=== PATIENT | female | born 1950 | race Caucasian/White ===

== ENCOUNTER 2021-06-22 09:31 | Inpatient (IN) ==
[2021-06-22] MEDS ORDERED: 0.9 % SODIUM CHLORIDE 1,000 ML IV ONE ×2 (10:23→13:33)
--- NOTE | 2021-06-22 10:27 | Emergency Department Note ---
URI/Sore Throat HPI General Chief Complaint: Cold/Flu Symptoms Stated Complaint: confusion & SOB Time Seen by Provider: 06/22/21 09:50 Source: patient, family (Family friend at bedside) and old records reviewed Mode of arrival: ambulatory Limitations: no limitations History of Present Illness HPI Narrative: Narrative: 71-year-old female who was seen by by me 911 for Covid pneumonia anemia acute renal insufficiency acute hyponatremia elevated troponin and dehydration. Patient was scheduled to be admitted but when she met with hospitalist declined admission. Left AMA. Patient complains of and continued shortness of breath fevers and chills confusion and generalized weakness. She felt better for a day after receiving IV fluids and has continued to get worse after that. Poor p.o. intake sleeping per friend at bedside. MD Complaint: fever, cough and rhinorrhea Onset (ago): day(s) Duration: constant Severity: moderate Improves with: rest Worsens with: exertion Description of mucous: clear Able to tolerate fluids by mouth: Yes Context: sick contacts, recent travel and multiple patients with similar complaints Associated symptoms: Reports fever, chills, myalgias, diaphoresis, rhinorrhea, nasal congestion, sore throat, cough, shortness of breath and nausea; Denies voice changes, headache, stiff neck, chest pain, abdominal pain, vomiting, diarrhea, dysuria, rash, epistaxis and ear pain Treatments prior to arrival: acetaminophen Related Data Home Medications Medication Instructions Recorded Confirmed allopurinol 300 mg PO BID 06/19/21 06/19/21 aripiprazole 2 mg PO QDAY 06/19/21 06/19/21 aspirin [Aspir-81] 81 PO DAILY 06/19/21 carvedilol 25 mg PO BID 06/19/21 06/19/21 diphenhydramine HCl [Allergy 25 mg PO Q6H PRN 06/19/21 06/19/21 (diphenhydramine)] duloxetine 120 mg PO QDAY 06/19/21 06/19/21 eszopiclone 1 mg PO QHS 06/19/21 06/19/21 famotidine [Pepcid AC] 20 mg PO QDAY 06/19/21 06/19/21 fluticasone furoate-vilanterol 1 inh INHALATION Q24H 06/19/21 06/19/21 [Breo Ellipta] furosemide 20 mg PO QAM 06/19/21 06/19/21 insulin lispro [Humalog Pen] SUBCUT 06/19/21 levothyroxine 100 mcg PO QDAY 06/19/21 06/19/21 quetiapine 400 mg PO QDAY 06/19/21 06/19/21 rosuvastatin 20 mg PO QDAY 06/19/21 06/19/21 Allergies Allergy/AdvReac Type Severity Reaction Status Date / Time No Known Drug Allergies Allergy Unverified 06/19/21 09:49 Review of Systems ROS ROS Narrative: Narrative: All systems ED: reviewed and negative except as stated. [facility] Narrative Patient History Narrative: Narrative: Medical/Surgical/Family History All Active Problems (Updated 06/22/21 @ 13:36 by Bennie Dahl MD) COVID-19 (Acute) Anemia (Acute) Acute renal insufficiency (Acute) Acute hyponatremia (Acute) Elevated troponin (Acute) Dehydration (Acute) 2019 novel coronavirus-infected pneumonia (NCIP) (Acute) Social History Smoking Status: Unknown if ever smoked Exam Narrative Narrative: Narrative: General Limitations: no limitations General appearance: Present alert and in no apparent distress Head Head: Present atraumatic and normocephalic Eye Eye: Present normal appearance, PERRL and EOMI ENT ENT: Present normal exam and mucous membranes dry Neck Neck: Present normal inspection and full ROM Chest Chest: Present normal inspection; Absent tenderness Respiratory Respiratory: Present wheezes and decreased breath sounds; Absent respiratory distress Cardiovascular Cardiovascular: Present regular rate, normal rhythm and systolic murmur Adbominal Abdominal: Present soft; Absent distention, tenderness, guarding and rebound Extremities Extremities: Present normal inspection and full ROM; Absent tenderness, pedal edema and pretibial edema Back Back: Present normal inspection; Absent CVA tenderness (R) and CVA tenderness (L) Neurological Neurological: Present alert and oriented X3 Psychiatric Psychiatric: Present normal affect and normal mood Skin Skin: Present warm (WNL); Absent rash Course Vital Signs Vital signs: Vital Signs Temperature 99.0 F 06/22/21 09:33 Pulse Rate 69 06/22/21 09:33 Respiratory Rate 24 H 06/22/21 09:33 Blood Pressure 144/59 06/22/21 09:33 Pulse Oximetry (%) 91 06/22/21 09:33 Temperature 99.0 F 06/22/21 09:33 Pulse Rate 69 06/22/21 12:52 Respiratory Rate 27 H 06/22/21 12:52 Blood Pressure 135/99 06/22/21 12:46 Pulse Oximetry (%) 90 06/22/21 12:52 MDM MDM Narrative Medical decision making narrative: Narrative: Patient with Covid pneumonia who left AMA on the returns with increasing shortness of breath. Patient remains hypoxic on room air at 87% O2 saturation sodium is 130 and this is improved creatinine is 2.3 which is also improved from a 911 labs. Patient will require admission for oxygen and IV fluids. Differential Diagnosis Differential Diagnosis: Covid, pneumonia bacterial viral, COPD, CHF. Medical Records Medical records reviewed: Yes I reviewed the patient's medical records. Lab Data Lab results reviewed: Yes I reviewed the patient's lab results. Result diagrams: 06/22/21 10:55 06/22/21 10:55 Labs: Lab Results 06/22/21 06/22/21 06/22/21 Range/Units 10:55 10:55 10:55 WBC 11.2 H (4.5-11.0) K/mcL RBC 2.85 L (3.59-5.38) M/mcL Hgb 9.5 L (11.2-15.7) g/dL Hct 28.8 L (34.1-44.9) % MCV 101.1 H (80.0-100.0) fL MCH 33.3 (26.0-34.0) pg MCHC 33.0 (31.0-36.0) g/dL RDW 13.8 (11.5-14.5) % Plt Count 146 (140-440) K/mcL MPV 11.4 H (7.4-10.4) fL Neut % (Auto) 81.9 H (38.0-78.0) % Lymph % (Auto) 11.0 L (15.5-49.0) % [place] % (Auto) 6.9 (1.0-12.0) % Eos % (Auto) 0.1 (0.0-7.0) % Baso % (Auto) 0.1 (0.0-2.0) % Lymph # (Auto) 1.24 L (1.50-4.80) K/mcL [place] # (Auto) 0.78 (0.10-0.90) K/mcL Eos # (Auto) 0.01 (0.00-0.70) K/mcL Baso # (Auto) 0.01 (0.00-0.30) K/mcL Absolute Neutrophils 9.20 H (1.80-8.00) K/mcL VBG Lactic Acid < 0.2 L (0.5-2.0) mmol/L Sodium 130 L (133-145) mmol/L Potassium 3.6 (3.3-5.1) mmol/L Chloride 90 L (96-108) mmol/L Carbon Dioxide 20 L (22-30) mmol/L Anion Gap 20.0 H (8.0-16.0) BUN 69 H (8-23) mg/dL Creatinine 2.3 H (0.6-1.1) mg/dL GFR Calculation 20 Glucose 343 H (70-105) mg/dL Calcium 8.4 L (8.6-10.4) mg/dL Total Bilirubin 0.7 (0.1-1.0) mg/dL AST 28 (<32) U/L ALT 15 (<40) U/L Alkaline Phosphatase 135 H (39-117) U/L Troponin T (<0.03) ng/mL Total Protein 6.7 (5.9-8.4) gm/dL Albumin 3.2 (3.2-5.2) gm/dL Globulin 3.5 (2.2-3.7) gm/dL Albumin/Globulin Ratio 0.9 L (1.0-2.3) 06/22/21 Range/Units 10:55 WBC (4.5-11.0) K/mcL RBC (3.59-5.38) M/mcL Hgb (11.2-15.7) g/dL Hct (34.1-44.9) % MCV (80.0-100.0) fL MCH (26.0-34.0) pg MCHC (31.0-36.0) g/dL RDW (11.5-14.5) % Plt Count (140-440) K/mcL MPV (7.4-10.4) fL Neut % (Auto) (38.0-78.0) % Lymph % (Auto) (15.5-49.0) % [place] % (Auto) (1.0-12.0) % Eos % (Auto) (0.0-7.0) % Baso % (Auto) (0.0-2.0) % Lymph # (Auto) (1.50-4.80) K/mcL [place] # (Auto) (0.10-0.90) K/mcL Eos # (Auto) (0.00-0.70) K/mcL Baso # (Auto) (0.00-0.30) K/mcL Absolute Neutrophils (1.80-8.00) K/mcL VBG Lactic Acid (0.5-2.0) mmol/L Sodium (133-145) mmol/L Potassium (3.3-5.1) mmol/L Chloride (96-108) mmol/L Carbon Dioxide (22-30) mmol/L Anion Gap (8.0-16.0) BUN (8-23) mg/dL Creatinine (0.6-1.1) mg/dL GFR Calculation Glucose (70-105) mg/dL Calcium (8.6-10.4) mg/dL Total Bilirubin (0.1-1.0) mg/dL AST (<32) U/L ALT (<40) U/L Alkaline Phosphatase (39-117) U/L Troponin T 0.02 (<0.03) ng/mL Total Protein (5.9-8.4) gm/dL Albumin (3.2-5.2) gm/dL Globulin (2.2-3.7) gm/dL Albumin/Globulin Ratio (1.0-2.3) Radiology Data Radiology results reviewed: Yes I reviewed the patient's radiology results. 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 Dahl was called with the report Interpreted and Authenticated by: Gee Tellez 06/22/21 EKG Data EKG #1: EKG attestation: Yes I reviewed and interpreted this EKG. and Yes There are no EKG findings of acute coronary syndrome EKG shows normal: sinus rhythm Rate: normal (69) Rhythm: NSR [place]/QRS: LBBB When compared to previous EKG there are: no significant changes (06/19) Pulse Oximetry Data Pulse Ox %: 87 Interpretation: 87% on room air hypoxic for this patient Discharge Plan Patient/Caregiver Discharge Instructions Pt seen by [facility] GRINDER/PA only: No Clinical Impression: 2019 novel coronavirus-infected pneumonia (NCIP), Anemia, Acute renal insufficiency, Acute hyponatremia Patient Disposition: Xfer As Inpt ([facility]) Follow up with: Unknown,Unknown [Primary Care Provider] - Prescriptions: No Action carvedilol 25 mg Tablet 25 mg PO BID RF: 0 aspirin [Aspir-81] 81 mg Tablet,Delayed Release (Dr/Ec) 81 PO DAILY RF: 0 famotidine [Pepcid AC] 20 mg Tablet 20 mg PO QDAY RF: 0 diphenhydramine HCl [Allergy (diphenhydramine)] 25 mg Capsule 25 mg PO Q6H PRN (Reason: Allergy Symptoms) RF: 0 allopurinol 300 mg Tablet 300 mg PO BID RF: 0 furosemide 20 mg Tablet 20 mg PO QAM RF: 0 insulin lispro [Humalog Pen] 100 unit/mL Insulin Pen SUBCUT RF: 0 rosuvastatin 20 mg Tablet 20 mg PO QDAY RF: 0 duloxetine 60 mg Capsule,Delayed Release(Dr/Ec) 120 mg PO QDAY RF: 0 eszopiclone 1 mg Tablet 1 mg PO QHS RF: 0 aripiprazole 2 mg Tablet 2 mg PO QDAY RF: 0 quetiapine 400 mg Tablet Extended Release 24 Hr 400 mg PO QDAY RF: 0 levothyroxine 100 mcg Capsule 100 mcg PO QDAY RF: 0 Breo Ellipta 100-25 mcg/dose Blister With Device 1 inh INHALATION Q24H RF: 0
--- NOTE | 2021-06-22 10:47 | XRay Report ---
HISTORY: Fever for breast and confusion FINDINGS: There is a mild alveolar infiltrate in the central portion right lung. There is a large pacemaker in the left anterior chest wall obscuring a portion of the left lung. No infiltrate is seen on the left. The heart is mildly enlarged. The pulmonary vessels, best seen in left upper lobe appear normal. No pleural effusion is present. Moderate arthritis is present in the right shoulder. IMPRESSION: Mild pneumonia in the right lung Cardiomegaly Interpreted and Authenticated by: Gee Tellez 06/22/21
--- NOTE | 2021-06-22 10:53 | Cat Scan Report ---
History: Fever with confusion TECHNIQUE: The brain was imaged without contrast in axial plane at 2.5 mm intervals. The radiation exposure was limited using dose reduction technology. FINDINGS: There is mild generalized atrophy. There is no evidence of an acute infarct, hemorrhage, edema or mass effect. There is a 4 mm old white matter infarct lateral to the inferior aspect of the frontal horn of the left lateral ventricle. No abnormal extra-axial fluid collection is present. Patient has mild to moderate bilateral ethmoid sinusitis and mild bilateral frontal sinusitis. There is also inflammation in the right lateral recess of the sphenoid sinus. The mastoids are normally aerated. 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 Dahl was called with the report Interpreted and Authenticated by: Gee Tellez 06/22/21
[2021-06-22 12:33] LABS: Basophils # (Auto) 0.01 K/mcL (0.00-0.30); Basophils % (Auto) 0.1 % (0.0-2.0); Eosinophils # (Auto) 0.01 K/mcL (0.00-0.70); Eosinophils % (Auto) 0.1 % (0.0-7.0); Hematocrit 28.8 % (34.1-44.9); Hemoglobin 9.5 g/dL (11.2-15.7); Lymphocytes # (Auto) 1.24 K/mcL (1.50-4.80); Mean Cell Volume 101.1 fL (80.0-100.0); Mean Platelet Volume 11.4 fL (7.4-10.4); Monocytes # (Auto) 0.78 K/mcL (0.10-0.90); Monocytes % (Auto) 6.9 % (1.0-12.0); Neutrophils % (Auto) 81.9 % (38.0-78.0); Platelet Count 146 K/mcL (140-440); RBC 2.85 M/mcL (3.59-5.38); Red Cell Distribution Width 13.8 % (11.5-14.5); WBC 11.2 K/mcL (4.5-11.0)
--- NOTE | 2021-06-22 12:56 | EKG ---
[facility] Test Date: 2021-06-22 Pat Name: Corin Ocampo Department: ED Room: Gender: Female [employer]atch [employer]isher: : [id number] Requested By: Bennie Dahl Order Number: [id number] Reading MD: Nadeem Butler Measurements Intervals [place] Rate: 69 P: 7 DC: 179 QRS: -45 QRSD: 155 T: 103 QT: 480 QTc: 515 Interpretive Statements Sinus rhythm Left bundle branch block Unchanged from prior Electronically Signed On 06-22-2021 12:56:11 PDT by Nadeem Butler /store/M0/[id number]
[2021-06-22 13:15] LABS: ALT/SGPT 15 U/L (<40); AST/SGOT 28 U/L (<32); Albumin 3.2 gm/dL (3.2-5.2); Albumin/Globulin Ratio 0.9 (1.0-2.3); Alkaline Phosphatase 135 U/L (39-117); Bilirubin,Total 0.7 mg/dL (0.1-1.0); Blood Urea Nitrogen 69 mg/dL (8-23); Calcium 8.4 mg/dL (8.6-10.4); Carbon Dioxide 20 mmol/L (22-30); Chloride 90 mmol/L (96-108); Globulin 3.5 gm/dL (2.2-3.7); Glomerular Filtration Rate 20; Glucose 343 mg/dL (70-105)
[2021-06-22 15:20] LABS: Appearance,Urine HAZY (Clear); Bacteria,Urine MOD /hpf (0); Bilirubin,Urine Negative (Negative); Color,Urine YELLOW; Culture Indicated,Urine yes; Glucose,Urine (UA) >=500 mg/dL (Negative); Ketones,Urine Negative (Negative); Leukocyte Esterase,Urine 250 /ug (Negative); Nitrate,Urine Negative (Negative); Protein,Urine 30 mg/dL (Negative); Specific Gravity,Urine 1.008 (1.000-1.035); Urine Blood 0.03 mg/dL (Negative); Urine RBC 2 /hpf (0-3); Urine Squamous Epithelial Cell 1 /hpf (0-4); Urine WBC 43 /hpf (0-4); Urobilinogen,Urine Negative
--- NOTE | 2021-06-22 17:31 | Internal Med History&Physical ---
HPI History of Present Illness Patient information: Note initiated : 06/22/21 at 5:17 pm Service Date, if different from initiated Date: [] Patient: Corin Ocampo 71 y/o F admitted on for Confusion & SOB. Chief Complaint: [] History of present illness: Ms. Ocampo is a 71 year old female with a history of hypertension, type 2 diabetes mellitus, coronary artery disease, COPD, congestive heart failure, hypothyroidism, gout, depression, status post ICD, recently diagnosed with COVID-19 on 06/19/2021 who presented to the ED for confusion. The patient is from [place], currently visiting her sister. The patient arrived in [place] on 06/04/2021, her sister had COVID-19 at that time. The patient's sister's also got COVID-19. On about 06/09/2021 the patient developed a sore throat and dry cough. On 06/19/2021 the patient present ed to the ED where she was recommended for hospital admission. The patient left AGAINST MEDICAL ADVICE. Additionally the patient was found to have hyponatremia and elevated creatinine at that time. The patient returned to the ED on 06/22/2021 for complaints of confusion and found to be hypoxic requiring oxygen supplementation via nasal cannula. Chest x-ray showed a alveolar infiltrate in the right lung. 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 Patient was started on nasal cannula oxygen, confusion improved. Hospital medicine was asked to admit the patient for hypoxia felt to be secondary to COVID-19 pneumonia. Further work-up in the ED included routine labs that showed a mild leukocytosis, macrocytic anemia, hyponatremia with sodium of 130, elevated creatinine of 2.3. Review of systems Constitutional: positive for fatigue Eyes: no vision changes or pain Cardiovascular: no chest pain, no palpitations Respiratory: positive for dyspnea and dry cough Gastrointestinal: no abdominal pain, no nausea, vomiting, or diarrhea Genitourinary: no dysuria or difficulty voiding Musculoskeletal: no arthralgia or myalgia Integumentary: no skin lesion or wound Neurological: no focal weakness or numbness Psychiatric: no anxiety or depression Physical exam Head: Atraumatic, normal inspection. Eyes: normal appearance, no scleral icterus. Neck: full ROM Respiratory: nasal canula oxygen, right lobe crackles, bilateral wheezes, no respiratory distress. Cardiovascular: normal rate and rhythm, S1, S2. GI/Abdominal: soft, nontender, no guarding. Extremities: full range of motion, nontender. Neurological: CN II-XII intact, intact motor, intact sensation. Psychiatric: normal mood. Skin: warm, normal color PFSH PFSH All Active Problems (Updated 06/22/21 @ 13:36 by Bennie Dahl MD) COVID-19 (Acute) Anemia (Acute) Acute renal insufficiency (Acute) Acute hyponatremia (Acute) Elevated troponin (Acute) Dehydration (Acute) 2019 novel coronavirus-infected pneumonia (NCIP) (Acute) MEDS/ALLERGIES Home Medications and Allergies Home Medications Medication Instructions Recorded Confirmed Type allopurinol 300 mg PO BID 06/19/21 06/22/21 History aripiprazole 2 mg PO QDAY 06/19/21 06/22/21 History carvedilol 25 mg PO BID 06/19/21 06/22/21 History diphenhydramine HCl [Allergy 25 mg PO Q6H PRN 06/19/21 06/22/21 History (diphenhydramine)] duloxetine 120 mg PO QDAY 06/19/21 06/22/21 History eszopiclone 1 mg PO QHS 06/19/21 06/22/21 History famotidine [Pepcid AC] 20 mg PO QDAY 06/19/21 06/22/21 History fluticasone furoate-vilanterol 1 inh INHALATION Q24H 06/19/21 06/22/21 History [Breo Ellipta] furosemide 20 mg PO QAM 06/19/21 06/22/21 History insulin lispro [Humalog Pen] SUBCUT 06/19/21 History levothyroxine 100 mcg PO QDAY 06/19/21 06/22/21 History quetiapine 400 mg PO QDAY 06/19/21 06/22/21 History rosuvastatin 20 mg PO QDAY 06/19/21 06/22/21 History aspirin [Adult Aspirin] 81 mg PO QDAY 06/22/21 06/22/21 History Allergies Allergy/AdvReac Type Severity Reaction Status Date / Time No Known Drug Allergies Allergy Unverified 06/19/21 09:49 EXAM Constitutional Vitals: Temp Pulse Resp BP Pulse Ox 99.0 F 68 25 H 138/71 96 06/22/21 09:33 06/22/21 16:18 06/22/21 16:18 06/22/21 16:16 06/22/21 16:18 DATA Data Completed and Pending Labs: Labs from last 24 hours 06/22/21 06/22/21 06/22/21 14:12 10:55 10:55 WBC RBC Hgb Hct MCV MCH MCHC RDW Plt Count MPV Neut % (Auto) Lymph % (Auto) [place] % (Auto) Eos % (Auto) Baso % (Auto) Lymph # (Auto) [place] # (Auto) Eos # (Auto) Baso # (Auto) Absolute Neutrophils VBG Lactic Acid < 0.2 L Sodium Potassium Chloride Carbon Dioxide Anion Gap BUN Creatinine GFR Calculation Glucose Calcium Total Bilirubin AST ALT Alkaline Phosphatase Troponin T 0.02 Total Protein Albumin Globulin Albumin/Globulin Ratio Urine Color Yellow Urine Appearance Hazy A Urine pH 6.0 Ur Specific [place] 1.008 Urine Protein 30 A Urine Glucose (UA) >=500 A Urine Ketones Negative Urine Occult Blood 0.03 Urine Nitrate Negative Urine Bilirubin Negative Urine Urobilinogen Negative Ur Leukocyte Esterase 250 A Urine RBC 2 Urine WBC 43 H Ur Squamous Epith Cells 1 Urine Bacteria Mod A Ur Culture Indicated? yes 06/22/21 06/22/21 10:55 10:55 WBC 11.2 H RBC 2.85 L Hgb 9.5 L Hct 28.8 L MCV 101.1 H MCH 33.3 MCHC 33.0 RDW 13.8 Plt Count 146 MPV 11.4 H Neut % (Auto) 81.9 H Lymph % (Auto) 11.0 L [place] % (Auto) 6.9 Eos % (Auto) 0.1 Baso % (Auto) 0.1 Lymph # (Auto) 1.24 L [place] # (Auto) 0.78 Eos # (Auto) 0.01 Baso # (Auto) 0.01 Absolute Neutrophils 9.20 H VBG Lactic Acid Sodium 130 L Potassium 3.6 Chloride 90 L Carbon Dioxide 20 L Anion Gap 20.0 H BUN 69 H Creatinine 2.3 H GFR Calculation 20 Glucose 343 H Calcium 8.4 L Total Bilirubin 0.7 AST 28 ALT 15 Alkaline Phosphatase 135 H Troponin T Total Protein 6.7 Albumin 3.2 Globulin 3.5 Albumin/Globulin Ratio 0.9 L Urine Color Urine Appearance Urine pH Ur Specific [place] Urine Protein Urine Glucose (UA) Urine Ketones Urine Occult Blood Urine Nitrate Urine Bilirubin Urine Urobilinogen Ur Leukocyte Esterase Urine RBC Urine WBC Ur Squamous Epith Cells Urine Bacteria Ur Culture Indicated? A/P Narrative A/P Narrative: Assessment: 71 year old female with a history of hypertension, type 2 diabetes mellitus, coronary artery disease, COPD, congestive heart failure, hypothyroidism, gout, depression, status post ICD, recently diagnosed with COVID-19 on 06/19/2021 who presented to the ED for confusion and found to be hypoxic. Confusion improved with oxygen supplementation. Chest xray showed right infiltrate in central right lung. #COVID-19 #Possible CAP #[place] #COPD #Htn #Type 2 DM #Hypothyroidism #CAD #s/p ICD #Gout #Depression #GERD Plan -Dexamethasone and Remdesivir -Oxygen supplementation -Procalcitonin, CRP, Hgb A1C -Consider abx for possible CAP if procalcitonin markedly elevated -IV fluid, hold home lasix. -Daily labs. -Essential home meds -DVT ppx: Lovenox -Code status: DNR Time Spent With Patient Time: Total time spent is greater than 50% in coordination of care (as documented) at patient's floor/unit and/or counseling patient:
[2021-06-22] MEDS ORDERED: diphenhydrAMINE 25 MG CAPSULE PO PRN (17:56)
[2021-06-22] MEDS ORDERED: ONDANSETRON 4 MG/2 ML VIAL IV PRN (17:56)
[2021-06-22] MEDS ORDERED: ALBUTEROL SULFATE 2.5 MG/3 ML NEBULIZER NEB PRN (17:56)
[2021-06-22] MEDS ORDERED: DEXTROSE 31 GM ORAL.SUSP PO PRN (17:56)
[2021-06-22] MEDS ORDERED: 0.9 % SODIUM CHLORIDE 1,000 ML IV SCH (17:56)
[2021-06-22] MEDS ORDERED: ACETAMINOPHEN 325 MG TABLET PO PRN (17:56)
[2021-06-22] MEDS ORDERED: DEXTROSE 50% 50 ML VIAL IV PRN (17:56)
[2021-06-22] MEDS: CARVEDILOL 12.5 MG TABLET PO SCH (18:21)
[2021-06-22] MEDS: INSULIN LISPRO 1 UNIT/0.01 ML UNIT SQ SCH ×2 (18:22→20:17)
[2021-06-22] MEDS ORDERED: REMDESIVIR 200 MG in 0.9 % SODIUM CHLORIDE 250 ML IV ONE (19:00)
[2021-06-22 19:31] LABS: Estimated Average Glucose(eAG) 192 mg/dL; Hemoglobin A1C 8.3 % Hgb (4.0-6.0)
[2021-06-22] MEDS: HEPARIN 5,000 UNIT/ML VIAL SQ SCH (20:49)
[2021-06-22] MEDS: SENNOSIDES 1 TABLET PO SCH (20:49)
[2021-06-22] MEDS: ALLOPURINOL 100 MG TABLET PO SCH (20:50)
[2021-06-22] MEDS: 0.9 % SODIUM CHLORIDE 10 ML SYRINGE IV SCH (20:50)
[2021-06-22] MEDS ORDERED: INSULIN GLARGINE, HUMAN 1 UNIT/0.01 ML SQ SCH (21:00)
[2021-06-23] MEDS: 0.9 % SODIUM CHLORIDE 10 ML SYRINGE IV SCH ×3 (05:51→20:32)
[2021-06-23] MEDS: INSULIN LISPRO 1 UNIT/0.01 ML UNIT SQ SCH ×4 (08:14→20:31)
[2021-06-23] MEDS: DEXAMETHASONE 4 MG TABLET PO SCH (08:15)
[2021-06-23] MEDS: ATORVASTATIN 40 MG TABLET PO SCH (08:15)
[2021-06-23] MEDS: DULoxetine 30 MG CAPSULE PO SCH (08:15)
[2021-06-23] MEDS: LEVOTHYROXINE 100 MCG TABLET PO SCH (08:16)
[2021-06-23] MEDS: HEPARIN 5,000 UNIT/ML VIAL SQ SCH ×2 (08:16→20:12)
[2021-06-23] MEDS: ASPIRIN 81 MG TAB.CHEW PO SCH (08:16)
[2021-06-23] MEDS: CARVEDILOL 12.5 MG TABLET PO SCH ×2 (08:16→16:45)
[2021-06-23] MEDS: ALLOPURINOL 100 MG TABLET PO SCH ×2 (08:16→20:09)
[2021-06-23 08:53] LABS: Basophils # (Auto) 0.02 K/mcL (0.00-0.30); Basophils % (Auto) 0.2 % (0.0-2.0); Eosinophils # (Auto) 0.06 K/mcL (0.00-0.70); Eosinophils % (Auto) 0.6 % (0.0-7.0); Hematocrit 29.2 % (34.1-44.9); Lymphocytes # (Auto) 1.39 K/mcL (1.50-4.80); Lymphocytes % (Auto) 13.6 % (15.5-49.0); Mean Cell Volume 102.5 fL (80.0-100.0); Mean Corpuscular HGB Conc 30.8 g/dL (31.0-36.0); Mean Platelet Volume 11.2 fL (7.4-10.4); Monocytes # (Auto) 0.78 K/mcL (0.10-0.90); Monocytes % (Auto) 7.6 % (1.0-12.0); Platelet Count 157 K/mcL (140-440); RBC 2.85 M/mcL (3.59-5.38); Red Cell Distribution Width 13.7 % (11.5-14.5); WBC 10.2 K/mcL (4.5-11.0)
[2021-06-23] MEDS ORDERED: QUETIAPINE 400 MG PO SCH ×2 (09:00→21:00)
[2021-06-23 09:11] LABS: ALT/SGPT 19 U/L (<40); AST/SGOT 37 U/L (<32); Albumin 3.1 gm/dL (3.2-5.2); Albumin/Globulin Ratio 0.9 (1.0-2.3); Alkaline Phosphatase 131 U/L (39-117); Bilirubin,Direct 0.4 mg/dL (<0.3); Bilirubin,Total 0.7 mg/dL (0.1-1.0); Blood Urea Nitrogen 46 mg/dL (8-23); Calcium 8.2 mg/dL (8.6-10.4); Carbon Dioxide 22 mmol/L (22-30); Chloride 97 mmol/L (96-108); Globulin 3.3 gm/dL (2.2-3.7); Glomerular Filtration Rate 27; Glucose 223 mg/dL (70-105); Lactate Dehydrogenase 337 U/L (135-225); Phosphorous 1.8 mg/dL (2.5-4.5); Triglycerides 255 mg/dL (<150); Uric Acid 5.8 mg/dL (2.5-8.0)
[2021-06-23] MEDS ORDERED: MAGNESIUM SULFATE 2 GM/50 ML BAG IV ONE (09:18)
[2021-06-23] MEDS: FAMOTIDINE 20 MG TABLET PO SCH (11:05)
[2021-06-23] MEDS: NEUTRA PHOS 1 PACKET PO SCH ×4 (11:05→20:11)
[2021-06-23] MEDS: FLUTICASONE FUROATE VILANTEROL INH SCH (11:28)
[2021-06-23] MEDS: REMDESIVIR 100 MG in 0.9 % SODIUM CHLORIDE 250 ML IV SCH (12:22)
--- NOTE | 2021-06-23 16:46 | Internal Med Progress Note ---
SUBJECTIVE Subjective Patient information: Note initiated : 06/23/21 at 4:41 pm Service Date, if different from initiated Date: [] Patient: Corin Ocampo 71 y/o F admitted on 06/22/21 for Confusion & SOB. Chief Complaint: [] Interval history: History of present illness: Ms. Ocampo is a 71 year old female with a history of hypertension, type 2 diabetes mellitus, coronary artery disease, COPD, congestive heart failure, hypothyroidism, gout, depression, status post ICD, recently diagnosed with COVID-19 on 06/19/2021 who presented to the ED for confusion. The patient is from [place], currently visiting her sister. The patient arrived in [place] on 06/04/2021, her sister had COVID-19 at that time. The patient's sister's also got COVID-19. On about 06/09/2021 the patient developed a sore throat and dry cough. On 06/19/2021 the patient presented to the ED where she was recommended for hospital admission. The patient left AGAINST MEDICAL ADVICE. Additionally the patient was found to have hyponatremia and elevated creatinine at that time. The patient returned to the ED on 06/22/2021 for complaints of confusion and found to be hypoxic requiring oxygen supplementation via nasal cannula. Chest x-ray showed a alveolar infiltrate in the right lung. 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 Patient was started on nasal cannula oxygen, confusion improved. Hospital medicine was asked to admit the patient for hypoxia felt to be secondary to COVID-19 pneumonia. Further work-up in the ED included routine labs that showed a mild leukocytosis, macrocytic anemia, hyponatremia with sodium of 130, elevated creatinine of 2.3. 06/23 Patient feeling better today. Has occasional cough. Shortness of breath improved. Currently on room air but has been On a liter earlier today. General: Alert, Awake, No acute Distress Eyes/N/T: EOMI, Head/Neck: neck supple, CV: RRR, No murmurs, Pulm: Clear b/l, no wheezing/rhonchi/rales Abd: soft, nontender, +BS x4 Ext: no clubbing/cyanosis/edema Neuro: Alert, no focal deficits, moves all extremities, Skin: warm/dry Constitutional Vitals: Vital Signs Temp Pulse Resp BP Pulse Ox 97.5 F 79 20 110/63 89 L 06/23/21 16:00 06/23/21 16:00 06/23/21 16:00 06/23/21 16:00 06/23/21 16:00 Period Temp Pulse Resp BP Sys/Gifford Pulse Ox Last 24 Hr 97.5 F-98.9 F 66-88 18-28 110-146/54-110 88-95 Intake and Output 06/23/21 06/23/21 06/23/21 05:59 13:59 21:59 Intake Total 610 1000 300 Output Total 3 Balance 607 1000 300 Weight 82.418 kg Patient Weight 06/24/21 05:59 Weight 82.418 kg Intake & Output: Intake & Output 06/23/21 06/23/21 06/23/21 05:59 13:59 21:59 Intake Total 610 1000 300 Output Total 3 Balance 607 1000 300 Weight 82.418 kg Intake: IV 250 1000 300 Sodium Chloride 0.9% 1,000 ml @ 1000 100 mls/hr IV .Q10H [facility] Rx#: [id number] Veklury 100 mg In Sodium 250 250 Chloride 0.9% 250 ml @ 500 mls/ hr IV DAILY@1100 [facility] Rx#: [id number] Oral 360 Output: # of times incontinent of urine 3 Other: Urine Appearance Clear Urine Color Bright Yellow Stool Size Moderate Stool Color Brown Stool Consistency Soft # Voids 1 1 # Bowel Movements 1 OBJ DATA Labs CBC & Chem 7: 06/23/21 05:06 06/23/21 05:06 Labs: Abnormal Lab Results 06/23/21 06/23/21 06/22/21 05:06 05:06 14:12 WBC RBC 2.85 L Hgb 9.0 L Hct 29.2 L MCV 102.5 H MCHC 30.8 L MPV 11.2 H Neut % (Auto) Lymph % (Auto) 13.6 L Lymph # (Auto) 1.39 L Absolute Neutrophils VBG Lactic Acid Sodium Chloride Carbon Dioxide Anion Gap BUN 46 H Creatinine 1.8 H Glucose 223 H Hemoglobin A1c Calcium 8.2 L Phosphorus 1.8 L Magnesium 1.3 L Direct Bilirubin 0.4 H AST 37 H Alkaline Phosphatase 131 H Lactate Dehydrogenase 337 H C-Reactive Protein Albumin 3.1 L Albumin/Globulin Ratio 0.9 L Triglycerides 255 H Procalcitonin Urine Appearance Hazy A Urine Protein 30 A Urine Glucose (UA) >=500 A Ur Leukocyte Esterase 250 A Urine WBC 43 H Urine Bacteria Mod A 06/22/21 06/22/21 06/22/21 10:55 10:55 10:55 WBC RBC Hgb Hct MCV MCHC MPV Neut % (Auto) Lymph % (Auto) Lymph # (Auto) Absolute Neutrophils VBG Lactic Acid < 0.2 L Sodium Chloride Carbon Dioxide Anion Gap BUN Creatinine Glucose Hemoglobin A1c 8.3 H Calcium Phosphorus Magnesium Direct Bilirubin AST Alkaline Phosphatase Lactate Dehydrogenase C-Reactive Protein 17.70 H Albumin Albumin/Globulin Ratio Triglycerides Procalcitonin 0.38 H Urine Appearance Urine Protein Urine Glucose (UA) Ur Leukocyte Esterase Urine WBC Urine Bacteria 06/22/21 06/22/21 10:55 10:55 WBC 11.2 H RBC 2.85 L Hgb 9.5 L Hct 28.8 L MCV 101.1 H MCHC MPV 11.4 H Neut % (Auto) 81.9 H Lymph % (Auto) 11.0 L Lymph # (Auto) 1.24 L Absolute Neutrophils 9.20 H VBG Lactic Acid Sodium 130 L Chloride 90 L Carbon Dioxide 20 L Anion Gap 20.0 H BUN 69 H Creatinine 2.3 H Glucose 343 H Hemoglobin A1c Calcium 8.4 L Phosphorus Magnesium Direct Bilirubin AST Alkaline Phosphatase 135 H Lactate Dehydrogenase C-Reactive Protein Albumin Albumin/Globulin Ratio 0.9 L Triglycerides Procalcitonin Urine Appearance Urine Protein Urine Glucose (UA) Ur Leukocyte Esterase Urine WBC Urine Bacteria Meds: Medications Acetaminophen (Acetaminophen 325 Mg Tablet) 650 mg PO Q6HP PRN; Protocol PRN Reason: Per Pain Protocol/Fever > 101 Albuterol Sulfate (Albuterol Sulfate 2.5 Mg/3 Ml Nebulizer) 2.5 mg NEB Q2HP PRN PRN Reason: Shortness Of Breath Allopurinol (Allopurinol 100 Mg Tablet) 100 mg PO BID PENDING SALE TO [facility] Last Admin: 06/23/21 08:16 Dose: 100 mg Documented by: Aspirin (Aspirin 81 Mg Tab.Chew) 81 mg PO DAILY PENDING SALE TO [facility] Last Admin: 06/23/21 08:16 Dose: 81 mg Documented by: Atorvastatin Calcium (Atorvastatin 40 Mg Tablet) 40 mg PO QDAY PENDING SALE TO [facility] Last Admin: 06/23/21 08:15 Dose: 40 mg Documented by: Carvedilol (Carvedilol 12.5 Mg Tablet) 25 mg PO BIDCC PENDING SALE TO [facility] Last Admin: 06/23/21 08:16 Dose: 25 mg Documented by: Dexamethasone (Dexamethasone 4 Mg Tablet) 6 mg PO DAILY PENDING SALE TO [facility] Stop: 07/03/21 08:59 Last Admin: 06/23/21 08:15 Dose: 6 mg Documented by: Dextrose (Dextrose 50% 50 Ml Vial) 0 ml IV UD PRN PRN Reason: Hypoglycemia Diagnostic Test (Pha) (Accu-Chek 1 Each Strip) 1 each FS [facility] Last Admin: 06/23/21 12:26 Dose: 1 each Documented by: Diphenhydramine HCl (Diphenhydramine 25 Mg Capsule) 25 mg PO Q6HP PRN PRN Reason: Allergy Symptoms Last Admin: 06/22/21 20:49 Dose: 25 mg Documented by: Duloxetine HCl (Duloxetine 30 Mg Capsule) 60 mg PO DAILY PENDING SALE TO [facility] Last Admin: 06/23/21 08:15 Dose: 60 mg Documented by: Famotidine (Famotidine 20 Mg Tablet) 20 mg PO QDAY PENDING SALE TO [facility] Last Admin: 06/23/21 11:05 Dose: 20 mg Documented by: Glucose (Dextrose 31 Gm Oral.Susp) 15 gm PO PRN PRN PRN Reason: Hypoglycemia Heparin Sodium (Porcine) (Heparin 5,000 Unit/Ml Vial) 5,000 unit SQ Q12 PENDING SALE TO [facility] Last Admin: 06/23/21 08:16 Dose: 5,000 unit Documented by: REMDESIVIR 100 mg/ Sodium (Chloride) 250 mls @ 500 mls/hr IV DAILY@1100 PENDING SALE TO [facility] Stop: 06/26/21 11:29 Last Infusion: 06/23/21 14:54 Dose: Infused Documented by: Insulin Glargine (Insulin Glargine, Human 1 Unit/0.01 Ml) 15 unit SQ [facility] Insulin Human Lispro (Insulin Lispro 1 Unit/0.01 Ml Unit) 0 unit SQ [facility]; Protocol Last Admin: 06/23/21 12:26 Dose: 15 units Documented by: Levothyroxine Sodium (Levothyroxine 100 Mcg Tablet) 100 mcg PO ACB PENDING SALE TO [facility] Last Admin: 06/23/21 08:16 Dose: 100 mcg Documented by: Ondansetron HCl (Ondansetron 4 Mg/2 Ml Vial) 4 mg IV Q6HP PRN PRN Reason: Nausea And Vomiting Aripiprazole 2 Mg (Tablet) 1 dose PO DAILY PEND[facility] SALE TO [facility] Last Admin: 06/23/21 11:28 Dose: Not Given Documented by: Eszopiclone 1 Mg (Tablet) 1 dose PO HS [facility]END[facility] Last Admin: 06/22/21 20:50 Dose: Not Given Documented by: Fluticasone Furoate- Vilanterol [Breo Ellipta] 100 Mcg/25 Mcg Inhaler 1 dose INH DAILY PEND[facility] SALE TO [facility] Last Admin: 06/23/21 11:28 Dose: Not Given Documented by: Quetiapine 400 Mg Tablet Extended Release 24 Hr 1 dose PO HS PENDING SALE TO [facility] Potassium/Phosphorus/Sodium (Neutra Phos 1 Packet) 2 packet PO BID PENDING SALE TO [facility] Stop: 06/25/21 09:19 Last Admin: 06/23/21 11:05 Dose: 2 packet Documented by: Senna (Sennosides 1 Tablet) 2 tab PO HS PENDING SALE TO [facility] Last Admin: 06/22/21 20:49 Dose: 2 tab Documented by: Sodium Chloride (0.9 % Sodium Chloride 10 Ml Syringe) 10 ml IV Q8 PEND[facility] SALE TO [facility] Last Admin: 06/23/21 05:51 Dose: 10 ml Documented by: A/P Narrative A/P Narrative: A/P Narrative: Assessment: 71 year old female with a history of hypertension, type 2 diabetes mellitus, coronary artery disease, COPD, congestive heart failure, hypothyroidism, gout, depression, status post ICD, recently diagnosed with COVID-19 on 06/19/2021 who presented to the ED for confusion and found to be hypoxic. Confusion improved with oxygen supplementation. Chest xray showed right infiltrate in central right lung. #COVID-19 #Possible CAP #Acute hypoxic respiratory failure: -on 0-2L NC #ANKUSH: improving #COPD(not on home O2) #Htn #Type 2 DM: A1c 8.3 #Hypothyroidism #CAD #s/p ICD #Gout #Depression #GERD #Hyponatremia/phos/mag: improved Plan -Dexamethasone and Remdesivir -Oxygen supplementation -s/p IV fluid, hold home lasix for now -basal and SSI -replete electorlyte -Essential home meds -DVT ppx: Lovenox -Code status: DNR Time Spent With Patient Time: Total time spent is greater than 50% in coordination of care (as documented) at patient's floor/unit and/or counseling patient:
[2021-06-23] MEDS ORDERED: BENZONATATE 100 MG CAPSULE PO ONE (16:51)
[2021-06-23] MEDS ORDERED: BENZONATATE 100 MG CAPSULE PO PRN (16:51)
[2021-06-23] MEDS: PHOSPHORUS 250 MG TABLET PO SCH ×2 (17:53→20:12)
[2021-06-23] MEDS: SENNOSIDES 1 TABLET PO SCH (20:10)
[2021-06-23] MEDS ORDERED: INSULIN GLARGINE, HUMAN 1 UNIT/0.01 ML SQ SCH (21:00)
[2021-06-24] MEDS: 0.9 % SODIUM CHLORIDE 10 ML SYRINGE IV SCH (04:03)
[2021-06-24] MEDS: INSULIN LISPRO 1 UNIT/0.01 ML UNIT SQ SCH ×2 (08:26→11:56)
[2021-06-24] MEDS: ATORVASTATIN 40 MG TABLET PO SCH (08:27)
[2021-06-24] MEDS: ALLOPURINOL 100 MG TABLET PO SCH (08:27)
[2021-06-24] MEDS: NEUTRA PHOS 1 PACKET PO SCH (08:27)
[2021-06-24] MEDS: HEPARIN 5,000 UNIT/ML VIAL SQ SCH (08:27)
[2021-06-24] MEDS: FAMOTIDINE 20 MG TABLET PO SCH (08:27)
[2021-06-24] MEDS: DEXAMETHASONE 4 MG TABLET PO SCH (08:27)
[2021-06-24] MEDS: DULoxetine 30 MG CAPSULE PO SCH (08:27)
[2021-06-24] MEDS: LEVOTHYROXINE 100 MCG TABLET PO SCH (08:27)
[2021-06-24] MEDS: ASPIRIN 81 MG TAB.CHEW PO SCH (08:28)
[2021-06-24] MEDS: CARVEDILOL 12.5 MG TABLET PO SCH (08:28)
[2021-06-24] MEDS: FLUTICASONE FUROATE VILANTEROL INH SCH (08:29)
[2021-06-24 08:53] LABS: Basophils # (Auto) 0.01 K/mcL (0.00-0.30); Basophils % (Auto) 0.1 % (0.0-2.0); Eosinophils # (Auto) 0 K/mcL (0.00-0.70); Eosinophils % (Auto) 0 % (0.0-7.0); Hematocrit 31.6 % (34.1-44.9); Hemoglobin 10.3 g/dL (11.2-15.7); Lymphocytes # (Auto) 0.71 K/mcL (1.50-4.80); Lymphocytes % (Auto) 7.5 % (15.5-49.0); Mean Cell Volume 100.3 fL (80.0-100.0); Mean Corpuscular HGB Conc 32.6 g/dL (31.0-36.0); Mean Platelet Volume 11.4 fL (7.4-10.4); Monocytes # (Auto) 0.31 K/mcL (0.10-0.90); Monocytes % (Auto) 3.3 % (1.0-12.0); Neutrophils % (Auto) 89.1 % (38.0-78.0); Platelet Count 200 K/mcL (140-440); RBC 3.15 M/mcL (3.59-5.38); Red Cell Distribution Width 13.7 % (11.5-14.5); WBC 9.5 K/mcL (4.5-11.0)
[2021-06-24 09:32] LABS: ALT/SGPT 25 U/L (<40); AST/SGOT 38 U/L (<32); Albumin 3.2 gm/dL (3.2-5.2); Albumin/Globulin Ratio 0.9 (1.0-2.3); Alkaline Phosphatase 127 U/L (39-117); Bilirubin,Direct 0.5 mg/dL (<0.3); Bilirubin,Total 0.7 mg/dL (0.1-1.0); Blood Urea Nitrogen 44 mg/dL (8-23); Calcium 8.7 mg/dL (8.6-10.4); Carbon Dioxide 21 mmol/L (22-30); Chloride 96 mmol/L (96-108); Globulin 3.5 gm/dL (2.2-3.7); Glomerular Filtration Rate 32; Glucose 278 mg/dL (70-105); Lactate Dehydrogenase 296 U/L (135-225); Phosphorous 5.2 mg/dL (2.5-4.5); Triglycerides 100 mg/dL (<150); Uric Acid 5.2 mg/dL (2.5-8.0)
[2021-06-24] MEDS: REMDESIVIR 100 MG in 0.9 % SODIUM CHLORIDE 250 ML IV SCH (11:54)
--- NOTE | 2021-06-24 12:16 | Discharge Summary ---
Discharge Provider Provider Patient information: Note initiated : 06/24/21 at 12:13 pm Service Date, if different from initiated Date: [] Patient: Corin Ocampo 71 y/o F admitted on 06/22/21 for Confusion & SOB. Chief Complaint: [] Date of admission: 06/22/21 17:35 Discharge date: 06/24/21 Primary care physician: Unknown Unknown Consults: 06/22/21 13:38 Consult to Physician [CONS] Stat Comment: Consulting Provider: Jose Maria Hardwick Reason For Exam: Physician to Consult Discharge Meds Discharge Medications Home Medications Breo Ellipta 1 inh INHALATION Q24H 06/19/21 [History Confirmed 06/23/21 Last Taken Unknown] allopurinol 300 mg PO BID 06/19/21 [History Confirmed 06/23/21 Last Taken Unknown] aripiprazole 2 mg PO QDAY 06/19/21 [History Confirmed 06/23/21 Last Taken Unknown] carvedilol 25 mg PO BID 06/19/21 [History Confirmed 06/23/21 Last Taken Unknown] diphenhydramine HCl [Allergy (diphenhydramine)] 25 mg PO Q6H PRN 06/19/21 [History Confirmed 06/23/21 Last Taken Unknown] duloxetine 120 mg PO QDAY 06/19/21 [History Confirmed 06/23/21 Last Taken Unknown] eszopiclone 1 mg PO QHS 06/19/21 [History Confirmed 06/23/21 Last Taken Unknown] famotidine [Pepcid AC] 20 mg PO QDAY 06/19/21 [History Confirmed 06/23/21 Last Taken Unknown] furosemide 20 mg PO QAM 06/19/21 [History Confirmed 06/23/21 Last Taken Unknown] insulin lispro 2 - 12 unit SUBCUT AC 06/19/21 [History Confirmed 06/23/21 Last Taken Unknown] levothyroxine 100 mcg PO QDAY 06/19/21 [History Confirmed 06/23/21 Last Taken Unknown] quetiapine 400 mg PO QHS 06/19/21 [History Confirmed 06/23/21 Last Taken Unknown] rosuvastatin 20 mg PO QDAY 06/19/21 [History Confirmed 06/22/21 Last Taken Unknown] aspirin 81 mg PO QDAY 06/22/21 [History Confirmed 06/23/21 Last Taken Unknown] amoxicillin-pot clavulanate [Augmentin] 1 tab PO BID 5 Days #10 tab 06/24/21 [Rx Last Taken Unknown] dexamethasone 6 mg PO DAILY 8 Days tab 06/24/21 [Rx Last Taken Unknown] doxycycline hyclate 100 mg PO BID 5 Days #10 cap 06/24/21 [Rx Last Taken Unknown] COURSE Hospital Course Hospital course: Ms. Ocampo is a 71 year old female with a history of hypertension, type 2 diabetes mellitus, coronary artery disease, COPD, congestive heart failure, hypothyroidism, gout, depression, status post ICD, recently diagnosed with COVID-19 on 06/19/2021 who presented to the ED for confusion. The patient is from [place], currently visiting her sister. The patient arrived in [place] on 06/04/2021, her sister had COVID-19 at that time. The patient's sister's also got COVID-19. On about 06/09/2021 the patient developed a sore throat and dry cough. On 06/19/2021 the patient presented to the ED where she was recommended for hospital admission. The patient left AGAINST MEDICAL ADVICE. Additionally the patient was found to have hyponatremia and elevated creatinine at that time. The patient returned to the ED on 06/22/2021 for complaints of confusion and found to be hypoxic requiring oxygen supplementation via nasal cannula. Chest x-ray showed a alveolar infiltrate in the right lung. 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 Patient was started on nasal cannula oxygen, confusion improved. Hospital medicine was asked to admit the patient for hypoxia felt to be secondary to COVID-19 pne umonia and possible community acquired pneumonia. Further work-up in the ED included routine labs that showed a mild leukocytosis, macrocytic anemia, hyponatremia with sodium of 130, elevated creatinine of 2.3. 06/23 Patient feeling better today. Has occasional cough. Shortness of breath improved. Currently on room air but has been On a liter earlier today. 06/24 On room air, feels much better. Renal function improved, creatinine down to 1.6. Discharged to home, complete oral dexamethasone for COVID-19 and Augmentin and Azithromycin for community acquired pneumonia treatment. Physical exam Head: Atraumatic, normal inspection. Eyes: normal appearance, no scleral icterus. Neck: full ROM Respiratory: right lobe crackles, bilateral wheezes, no respiratory distress. Cardiovascular: normal rate and rhythm, S1, S2. GI/Abdominal: soft, nontender, no guarding. Extremities: full range of motion, nontender. Neurological: CN II-XII intact, intact motor, intact sensation. Psychiatric: normal mood. Skin: warm, normal color Discharge diagnosis: COVID-19 Secondary discharge diagnosis: Community aquired pneumonia Time Spent with Patient Time attestation: Total time spent providing and/or coordinating discharge services: EXAM Constitutional Vitals: Temp Pulse Resp BP Pulse Ox 97.7 F 70 16 138/68 94 06/24/21 07:54 06/24/21 07:54 06/24/21 07:54 06/24/21 07:54 06/24/21 07:54 Discharge Data Data Completed and Pending Labs on day of discharge: Labs from last 24 hours 06/24/21 06/24/21 06/24/21 06:56 06:56 06:55 WBC RBC Hgb Hct MCV MCH MCHC RDW Plt Count MPV Neut % (Auto) Lymph % (Auto) [place] % (Auto) Eos % (Auto) Baso % (Auto) Lymph # (Auto) [place] # (Auto) Eos # (Auto) Baso # (Auto) Absolute Neutrophils Sodium 137 Potassium 3.1 L Chloride 96 Carbon Dioxide 21 L Anion Gap 20.0 H BUN 44 H Creatinine 1.6 H GFR Calculation 32 Glucose 278 H Uric Acid 5.2 Calcium 8.7 Phosphorus 5.2 H Magnesium 1.8 Total Bilirubin 0.7 Direct Bilirubin 0.5 H GGT 26 AST 38 H ALT 25 Alkaline Phosphatase 127 H Lactate Dehydrogenase 296 H C-Reactive Protein 21.10 H 20.00 H Total Protein 6.7 Albumin 3.2 Globulin 3.5 Albumin/Globulin Ratio 0.9 L Triglycerides 100 Procalcitonin 0.39 H 06/24/21 06:55 WBC 9.5 RBC 3.15 L Hgb 10.3 L Hct 31.6 L MCV 100.3 H MCH 32.7 MCHC 32.6 RDW 13.7 Plt Count 200 MPV 11.4 H Neut % (Auto) 89.1 H Lymph % (Auto) 7.5 L [place] % (Auto) 3.3 Eos % (Auto) 0 Baso % (Auto) 0.1 Lymph # (Auto) 0.71 L [place] # (Auto) 0.31 Eos # (Auto) 0 Baso # (Auto) 0.01 Absolute Neutrophils 8.48 H Sodium Potassium Chloride Carbon Dioxide Anion Gap BUN Creatinine GFR Calculation Glucose Uric Acid Calcium Phosphorus Magnesium Total Bilirubin Direct Bilirubin GGT AST ALT Alkaline Phosphatase Lactate Dehydrogenase C-Reactive Protein Total Protein Albumin Globulin Albumin/Globulin Ratio Triglycerides Procalcitonin Preliminary micro results at discharge 06/22/21 11:10 Blood Culture - Preliminary Blood 06/22/21 10:55 Blood Culture - Preliminary Blood Discharge Plan Patient/Caregiver Discharge Instructions Activity: increase activity as tolerated Diet: Consistent Carbohydrate Prescriptions: New dexamethasone 6 mg tablet 6 mg PO DAILY 8 Days RF: 0 amoxicillin-pot clavulanate [Augmentin] 875-125 mg tablet 1 tab PO BID 5 Days Qty: 10 RF: 0 doxycycline hyclate 100 mg capsule 100 mg PO BID 5 Days Qty: 10 RF: 0 Continued carvedilol 25 mg Tablet 25 mg PO BID RF: 0 famotidine [Pepcid AC] 20 mg Tablet 20 mg PO QDAY RF: 0 diphenhydramine HCl [Allergy (diphenhydramine)] 25 mg Capsule 25 mg PO Q6H PRN (Reason: Allergy Symptoms) RF: 0 allopurinol 300 mg Tablet 300 mg PO BID RF: 0 furosemide 20 mg Tablet 20 mg PO QAM RF: 0 insulin lispro 100 unit/mL Insulin Pen 2 - 12 unit SUBCUT AC RF: 0 rosuvastatin 20 mg Tablet 20 mg PO QDAY RF: 0 duloxetine 60 mg Capsule,Delayed Release(Dr/Ec) 120 mg PO QDAY RF: 0 eszopiclone 1 mg Tablet 1 mg PO QHS RF: 0 aripiprazole 2 mg Tablet 2 mg PO QDAY RF: 0 quetiapine 400 mg Tablet Extended Release 24 Hr 400 mg PO QHS RF: 0 levothyroxine 100 mcg Capsule 100 mcg PO QDAY RF: 0 Breo Ellipta 100-25 mcg/dose Blister With Device 1 inh INHALATION Q24H RF: 0 aspirin 81 mg Tablet 81 mg PO QDAY RF: 0 Follow Up Plan Follow up with: Unknown,Unknown [Primary Care Provider] - Patient Disposition: Home, Self-Care Overall status at discharge: patient is progressing back to baseline Discharge Orders: Discharge Order (Routine); Ordered 06/24/21 Ordered By: Jose Maria Hardwick
== END 2021-06-24 13:35 | disposition home or self-care (01) | DRG 177 ==
LOC: ED 09:31 → MEDSUR 17:35
PROVIDERS: ADMIT Internal Medicine; ATTEND Internal Medicine